=== PATIENT | female | born 1980 | race Two or more races ===

== ENCOUNTER 2019-10-14 10:12 | Outpatient (CLI) | payer OTHER ==
[2019-10-14 10:43] LABS: BASOPHILS # (AUTO) 0.1 K/uL (0.0-8.0); BASOPHILS % (AUTO) 0.7 % (0.0-2.0); EOSINOPHILS # (AUTO) 0.1 K/uL (0.0-0.7); EOSINOPHILS % (AUTO) 0.7 % (0.0-7.0); HEMATOCRIT 42.7 % (31.2-41.9); HEMOGLOBIN 14.2 g/dL (10.9-14.3); LYMPHOCYTES # (AUTO) 3.2 K/uL (20.0-40.0); LYMPHOCYTES % (AUTO) 36.2 % (20.5-51.5); MEAN CORPUSCULAR HEMOGLOBIN 30.1 uug (24.7-32.8); MEAN CORPUSCULAR HGB CONC 33 g/dL (32.3-35.6); MEAN CORPUSCULAR VOLUME 90.6 fL (75.5-95.3); MONOCYTES # (AUTO) 0.5 K/uL (2.0-10.0); MONOCYTES % (AUTO) 5.6 % (0.0-11.0); NEUTROPHILS % (AUTO) 56.8 % (38.5-71.5); PLATELET COUNT (AUTO) 363 K/uL (179-408); RED BLOOD CELL COUNT(AUTO) 4.71 MIL/uL (3.63-4.92); WHITE BLOOD COUNT (AUTO) 8.8 K/uL (3.8-11.8)
[2019-10-14 10:44] LABS: *BLOOD, URINE 2+ (NEGATIVE); *CLARITY,URINE CLOUDY (CLEAR); *COLOR,URINE DARK YELLOW (YELLOW); *KETONES,URINE NEGATIVE (NEGATIVE); *UROBILINOGEN,URINE 0.2 E.U./dl (NORMAL); LEUKOCYTE ESTERASE ,URINE NEGATIVE (NEGATIVE); NITRITE, URINE NEGATIVE (NEGATIVE); UGLUCOSE NEGATIVE (NEGATIVE)
[2019-10-14 10:50] LABS: CARBON DIOXIDE 27 mmol/L (21-32); CHLORIDE 106 mmol/L (98-107); CREATININE 0.5 mg/dL (0.6-1.3); GLUCOSE 93 mg/dL (74-106); POTASSIUM 3.4 mmol/L (3.5-5.1); UREA NITROGEN, BLOOD 7 mg/dL (7-18)
[2019-10-14 10:51] LABS: *BILIRUBIN,URIN 1+ (NEGATIVE)
[2019-10-14 10:56] LABS: ALANINE AMINOTRANSFERASE 11 U/L (14-59); ALKALINE PHOSPHATASE 79 U/L (50-136); ASPARTATE AMINOTRANSFERASE 8 U/L (15-37); BILIRUBIN,TOTAL 0.3 mg/dL (0.2-1.0); TOTAL PROTEIN, SERUM 6.9 g/dL (6.4-8.2)
[2019-10-14 10:57] LABS: BACTERIA,URINE MODERATE /HPF (NONE SEEN)
[2019-10-14 10:58] LABS: SQUAMOUS EPITHELIAL CELL,UR MODERATE /HPF (NONE SEEN)
[2019-10-14 10:59] LABS: MUCUS,URINE MODERATE /LPF (0-FEW)
== END 2019-10-14 23:59 | disposition home or self-care (01) ==
LOC: LAB 10:12
PROVIDERS: ATTEND Internal Medicine
DX: Z01.818 Encounter for other preprocedural examination (principal); G56.01 Carpal tunnel syndrome, right upper limb
CPT/HCPCS: 36415; 85025; 85730; 87086; A4663

== ENCOUNTER 2019-10-17 06:37 | Day surgery (SDC) | payer OTHER ==
[2019-10-17] MEDS ORDERED: PROPOFOL 200 MG/20 ML BOTTLE IV ONE (06:38)
[2019-10-17] MEDS ORDERED: LIDOCAINE-MPF 2% 5 ML VIAL IJ ONE (06:38)
[2019-10-17] MEDS ORDERED: METOCLOPRAMIDE HCL 10 MG/2 ML VIAL IV ONE (06:38)
[2019-10-17] MEDS ORDERED: KETOROLAC TROMETHAMINE 30 MG INJ IM ONE (06:38)
[2019-10-17] MEDS ORDERED: ONDANSETRON 4 MG/2 ML VIAL IV ONE (06:38)
[2019-10-17] MEDS ORDERED: DEXAMETHASONE SOD PHOSPHATE 4 MG INJ IV ONE (06:38)
[2019-10-17] MEDS ORDERED: CEFAZOLIN 1 G VIAL IM ONE (06:38)
[2019-10-17] MEDS ORDERED: SEVOFLURANE 250 ML BOTTLE IH ONE (06:38)
[2019-10-17 07:15] LABS: *URINE HCG, QUAL NEGATIVE (NEGATIVE)
[2019-10-17] MEDS ORDERED: POLYMYXIN B SULFATE 500,000 UNITS, BACITRACIN 50,000 UNITS, NORMAL SALINE 20 ML MC ONE ×3 (08:00)
[2019-10-17] MEDS ORDERED: BUPIVACAINE PF 0.5% 30 ML VIAL ONE (08:00)
[2019-10-17] MEDS ORDERED: MIDAZOLAM HCL 2 MG/2 ML VIAL ONE (08:30)
[2019-10-17] MEDS ORDERED: FENTANYL CITRATE 100 MCG/2 ML AMPUL ONE (09:36)
[2019-10-17] MEDS ORDERED: TRAMADOL HCL 50 MG TABLET ONE (10:53)
== END 2019-10-17 11:30 | disposition home or self-care (01) ==
LOC: DS 06:37
PROVIDERS: ATTEND Orthopaedic Surgery
DX: G56.01 Carpal tunnel syndrome, right upper limb (principal); F15.90 Other stimulant use, unspecified, uncomplicated
CPT/HCPCS: 64721; 84703; J2250; J3010; J3490 ×3; J7120; A4649; J0690; J1100; J1885; J2405; J2765